=== PATIENT | female | born 1990 | race African-American/Black ===

== ENCOUNTER 2017-12-18 18:38 | Emergency (ER) | payer OTHER ==
[2017-12-18 19:36] LABS: #Basophils 0.1 thou/uL (0.0-0.2); #Eosinphils 0.1 thou/uL (0.0-0.7); #Lymphocytes 2.1 thou/uL (1.20-3.40); #Monocytes 0.4 thou/uL (0.11-0.59); #Neutrophils 3.8 thou/uL (1.40-6.50); %Basophils 1.3 % (0.0-1.0); %Eosinophils 2.1 % (0.0-10.0); %Lymphocytes 32.1 % (21.0-51.0); %Monocytes 5.7 % (0.0-10.0); %Neutrophils 58.8 % (42.0-75.0); Hemoglobin 9.4 g/dL (12.0-16.0); Mean Corpuscular Hemoglobin 25.1 pg (27.0-31.0); Mean Corpuscular Volume 78.3 fL (78.0-98.0); Mean Platelet Volume 9.8 fL (7.4-10.4); Platelet Count 191 thou/uL (130-400); RBC Distribution Width 17.2 % (11.5-14.5); Red Blood Cell (RBC) Count 3.75 mill/uL (4.20-5.40); White Blood Cell (WBC) Count 6.5 thou/uL (4.8-10.8)
[2017-12-18 19:55] LABS: Anion Gap 14 mmol/L (10-20); BUN (Urea Nitrogen) 14 mg/dL (7.0-18.7); Calc. Creatinine Clearance 0 mL/min (70-130); Calcium 9.4 mg/dL (7.8-10.44); Carbon Dioxide 22 mmol/L (22-29); Chloride 107 mmol/L (98-107); Estimated GFR-MDRD Greater than 90; Glucose 95 mg/dL (70-105); Potassium 4.2 mmol/L (3.5-5.1); Sodium 139 mmol/L (136-145)
[2017-12-18 20:01] LABS: Troponin I Less than 0.010 ng/mL (< 0.028)
[2017-12-18 20:34] LABS: Bilirubin Negative (Negative); Blood, Urine Large (Negative); Clarity TURBID (Clear); Glucose, Urine (Dipstick) Negative (Negative); Leukocyte Moderate (Negative); Nitrite Negative (Negative); Protein, Urine (Dipstick) 100 mg/dL (Neg-Trace); pH, Urine 7.5 (5.0-9.0)
[2017-12-18 20:36] LABS: Hyaline Casts/LPF 4-6 HYALINE CAST LPF (0-3 Hyaline); Pathc Cast-AUWi Flag 0.88 (0-2.49)
[2017-12-18 20:39] LABS: Yeast-AUWi Flag 167.3 (0-25.0)
[2017-12-18 20:45] LABS: RBC/HPF GREATER THAN 50-TNTC HPF (0-3)
[2017-12-18 20:46] LABS: Bacteria/HPF 1+ HPF (None Seen)
--- NOTE | 2017-12-18 21:34 | ULT ---
ULTRASOUND PELVIC TRANSVAGINAL 12/18/17 HISTORY: Vaginal bleeding. Missed period. COMPARISON: None. TECHNIQUE: Real time cannon scale, color doppler and spectral analysis of the pelvis is performed in the transabdo nichelle approach. Transvaginal approach was also used. The uterus measures 8.9 x 4.1 x 6.1 cm. Endometrial thickness is 7 mm. Right ovary measures 3.4 x 2.6 x 2.5 cm and left ovary measures 2.5 x 2 x 3 cm. No significant free fluid in the pelvis. There are Nabothian cysts of the cervix. IMPRESSION: Unremarkable exam. POS: [facility]
== END 2017-12-18 23:10 | disposition home or self-care (01) ==
LOC: ERS 18:38
DX: N39.0 Urinary tract infection, site not specified (principal); N93.9 Abnormal uterine and vaginal bleeding, unspecified; F32.9 Major depressive disorder, single episode, unspecified
CPT/HCPCS: 36415; 76856; 80048; 81003; 81015; 84484; 84702; 85025; 86900; 86901; 87077; 87086; 93005; 96360

== ENCOUNTER 2019-10-27 21:11 | Emergency (ER) | payer OTHER ==
--- NOTE | 2019-10-27 21:41 | RAD ---
XR Chest 1 View Portable History: Dyspnea Comparison: Radiograph 2013 Findings: Heart size upper limits of normal. Mild atelectatic changes and poor inspiratory effort. No acute osseous abnormality. Impression: No acute intrathoracic abnormality.
[2019-10-28 15:35] LABS: SARS-CoV-2 N Gene Positive; SARS-CoV-2 S Gene Positive; SARS-CoV-2 orf1ab Positive
[2019-10-28 15:36] LABS: SARS-CoV-2 MS2 Positive
== END 2019-10-27 22:10 | disposition home or self-care (01) ==
LOC: ERS 21:11
DX: U07.1 COVID-19 (principal); F32.9 Major depressive disorder, single episode, unspecified
CPT/HCPCS: 71045; 87635; U0003